=== PATIENT | female | born 1945 | race Caucasian/White ===

== ENCOUNTER → 2017-02-17 | Outpatient (CLI) | payer MEDICARE, BC ==
[~2017-02-17] MED LIST: NORCO 325 MG-51 TAB PO; ORPHENADRINE C100 MG PO
== END ==
LOC: MC.RAD 15:00
DX: Z12.31 Encounter for screening mammogram for malignant neoplasm of breast (principal)

== ENCOUNTER → 2018-03-11 | Outpatient (CLI) | payer MEDICARE, BC | LOC: MC.RAD 14:20 | DX: Z12.31 Encounter for screening mammogram for malignant neoplasm of breast (principal) ==

== ENCOUNTER 2019-02-24 14:51 | Outpatient (CLI) | payer MEDICARE, BC ==
[~2019-02-24] VITALS: Ht 160 cm; Wt 56.1 kg
[2019-02-24 15:30] VITALS: BP 143/73; PULSE 77; TEMP 98.6
[2019-02-24 16:32] VITALS: BP 120/47; PULSE 79; TEMP 98.4
--- NOTE | 2019-02-24 16:33 | NUR ---
Infusion completed with no complications. IV access discontiued at this time. Vital signs are stable.
== END 2019-02-24 16:34 | disposition home or self-care (01) ==
LOC: EUO 14:51
DX: M81.0 Age-related osteoporosis without current pathological fracture (principal)
CPT/HCPCS: J3489

== ENCOUNTER → 2019-03-23 | Outpatient (CLI) | payer MEDICARE, BC | LOC: MC.RAD 13:15 | DX: Z12.31 Encounter for screening mammogram for malignant neoplasm of breast (principal) ==

== ENCOUNTER → 2020-03-24 | Outpatient (CLI) | payer MEDICARE, BC | LOC: MC.RAD 11:36 | DX: Z12.31 Encounter for screening mammogram for malignant neoplasm of breast (principal) ==

== ENCOUNTER 2020-03-27 14:41 | Outpatient (CLI) | payer MEDICARE, BC ==
[~2020-03-27] VITALS: Ht 160 cm; Wt 55.8 kg
[2020-03-27 15:17] VITALS: BP 148/84; PULSE 70; TEMP 98.1
[2020-03-27] MEDS ORDERED: COZAAR 25MG25 MG/TAB PO (15:35)
[2020-03-27] MEDS ORDERED: CALCIUM CARBON650 M2 PO (15:36)
[2020-03-27] MEDS ORDERED: ONE-A-DAY ESSE1 EACH PO (15:36)
[2020-03-27] MEDS ORDERED: VITAMIN D250 MCG PO (15:36)
[2020-03-27] MEDS ORDERED: MASON NATURAL1200 MG PO (15:37)
[2020-03-27] MEDS ORDERED: OSTEO-BI-FLEX 21 TAB PO (15:37)
== END 2020-03-27 16:37 | disposition home or self-care (01) ==
LOC: EUO 14:41
DX: M81.0 Age-related osteoporosis without current pathological fracture (principal)
CPT/HCPCS: J3489

== ENCOUNTER 2020-12-05 12:21 | Emergency (ER) | payer MEDICARE, BC ==
[~2020-12-05] VITALS: Ht 157.5 cm; Wt 54.5 kg
[~2020-12-05 12:21] MED LIST changes: +CALCIUM CARBON650 M2 PO; +COZAAR 25MG25 MG/TAB PO; +MASON NATURAL1200 MG PO; +ONE-A-DAY ESSE1 EACH PO; +OSTEO-BI-FLEX 21 TAB PO; +VITAMIN D250 MCG PO
[2020-12-05 12:32] VITALS: TEMP 97.9
[2020-12-05] MEDS ORDERED: VITAMIN C500 MG PO (12:42)
[2020-12-05 13:42] VITALS: BP 151/78; PULSE 86
== END 2020-12-05 13:42 | disposition home or self-care (01) ==
LOC: COL.ER 12:21
DX: M25.551 Pain in right hip (principal); I10 Essential (primary) hypertension; Z87.891 Personal history of nicotine dependence; Z79.899 Other long term (current) drug therapy

== ENCOUNTER → 2020-12-18 | Outpatient (CLI) | payer MEDICARE, BC ==
[~2020-12-18] MED LIST changes: +VITAMIN C500 MG PO
== END ==
LOC: COL.RAD 10:46
DX: M16.11 Unilateral primary osteoarthritis, right hip (principal)

== ENCOUNTER 2021-02-26 15:08 | Outpatient (CLI) | payer MEDICARE, BC ==
[~2021-02-26] VITALS: Ht 157.5 cm; Wt 54.2 kg
[2021-02-26 14:55] VITALS: BP 125/64; PULSE 75
[2021-02-26] MEDS ORDERED: COZAAR 25MG25 MG/TAB PO (15:12)
== END 2021-02-26 20:14 | disposition home or self-care (01) ==
LOC: EUO 15:08
DX: M81.0 Age-related osteoporosis without current pathological fracture (principal)
CPT/HCPCS: J3489

== ENCOUNTER → 2021-04-16 | Outpatient (CLI) | payer MEDICARE, BC | LOC: MC.RAD 14:23 | DX: Z12.31 Encounter for screening mammogram for malignant neoplasm of breast (principal); Z80.3 Family history of malignant neoplasm of breast ==

== ENCOUNTER 2022-03-26 08:34 | Day surgery (SDC) | payer MEDICARE, BC ==
[~2022-03-26] VITALS: Ht 157.5 cm; Wt 54.4 kg
[2022-03-26 09:30] VITALS: BP 140/73; PULSE 80; TEMP 98.3
[2022-03-26 10:15] VITALS: BP 128/75; PULSE 76; TEMP 97
[2022-03-26 10:30] VITALS: BP 137/78; PULSE 79
--- NOTE | 2022-03-26 10:36 | NUR ---
1015 - PT was settled by Odalis CEE; written report obtained. 1030 - Vitals obtained. PT has finished snack and drink; denies nausea/pain. Call licea is within reach if needed; non-slip socks remain on.
[2022-03-26 10:45] VITALS: BP 134/83; PULSE 68
--- NOTE | 2022-03-26 10:52 | NUR ---
1045 - VSS. IV discontinued. Catheter tip intact and pressure bandage applied; no redness or swelling noted. DC instructions and educational material reviewed w/ PT who verbalized understanding and signed the related paperwork. All questions answered to PT satisfaction. is speaking w/ PT. 1050 - PT refused RN assistance changing into personal clothes; call licea remains within reach if needed. Visitor remains present.
--- NOTE | 2022-03-26 11:05 | NUR ---
1100 - PT dismissed from endo via wheelchair to the PT entrence by Brie CEE; PT has DC packet and personal belongings, and was transferred into the care of Parker who is driving private truck.
== END 2022-03-26 11:05 | disposition home or self-care (01) ==
LOC: SDCO 08:34
DX: Z12.11 Encounter for screening for malignant neoplasm of colon (principal); D12.2 Benign neoplasm of ascending colon; D12.5 Benign neoplasm of sigmoid colon; K64.0 First degree hemorrhoids; I10 Essential (primary) hypertension; Z87.891 Personal history of nicotine dependence
CPT/HCPCS: J2704; J7030

== ENCOUNTER 2022-04-01 13:47 | Outpatient (CLI) | payer MEDICARE, BC ==
[~2022-04-01] VITALS: Ht 160 cm; Wt 56.3 kg
[2022-04-01 14:15] VITALS: BP 116/70; PULSE 85; TEMP 98.3
== END 2022-04-01 15:06 | disposition home or self-care (01) ==
LOC: EUO 13:47
DX: M81.0 Age-related osteoporosis without current pathological fracture (principal)
CPT/HCPCS: J3489

== ENCOUNTER 2023-06-24 12:55 | Outpatient (CLI) | payer MEDICARE, BC ==
[2023-06-24] MEDS ORDERED: RECLAST5 MG/100 M IV (13:19)
[2023-06-24] MEDS ORDERED: [UNRECOGNIZED DRUG - OTHER] PO (13:45)
[2023-06-24] MEDS ORDERED: CALCIUM 600MG+D1 TAB PO (13:45)
[2023-06-24] MEDS ORDERED: MASON NATURAL2000 IU PO (13:46)
[2023-06-24] MEDS ORDERED: EPA FISH OIL1 SGL PO (13:47)
[2023-06-24] MEDS ORDERED: VITAMIN C500 MG PO (13:47)
[2023-06-24 13:53] VITALS: BP 128/71; PULSE 72; TEMP 97.9
--- NOTE | 2023-06-24 14:11 | NUR ---
Pt tolerated reclast without issue. IV DC'd, site wrapped with coban. She exits dept with steady gait.
== END 2023-06-24 14:11 | disposition home or self-care (01) ==
LOC: EUO 12:55
DX: M81.0 Age-related osteoporosis without current pathological fracture (principal)
CPT/HCPCS: J3489

== ENCOUNTER → 2024-05-04 | Outpatient (CLI) | payer MEDICARE ==
[~2024-05-04] MED LIST changes: +CALCIUM 600MG+D1 TAB PO; +EPA FISH OIL1 SGL PO; +MASON NATURAL2000 IU PO; +RECLAST5 MG/100 M IV; +[UNRECOGNIZED DRUG - OTHER] PO
== END ==
LOC: MC.RAD 11:37
DX: Z12.31 Encounter for screening mammogram for malignant neoplasm of breast (principal); Z80.3 Family history of malignant neoplasm of breast